=== PATIENT | female | born 1990 | race Caucasian/White ===

== ENCOUNTER 2020-05-22 01:12 | Inpatient (IN) ==
[2020-05-22] MEDS ORDERED: Sodium Citrate/Citric Acid LIQ 15 ML UDC ONE (01:38)
[2020-05-22] MEDS ORDERED: ceFOXitin 2 GM IVPREMIX 0 GM/0 ML BAG ONE (01:38)
[2020-05-22] MEDS ORDERED: OBEPIDURAL 0 ML EPIDURAL ONE (01:52)
[2020-05-22] MEDS ORDERED: Oxytocin in LR 20 UNITS/1,000 ML BAG IVPB ONE (01:53)
[2020-05-22] MEDS ORDERED: Dibucaine 1% OINT 28.35 GM TUBE PR PRN (02:35)
[2020-05-22] MEDS ORDERED: Buffered Lidocaine 1% SYRIN 1 ml INTRADERM ONE (02:35)
[2020-05-22] MEDS ORDERED: Witch Hazel PAD JAR TOPICAL PRN (02:35)
[2020-05-22] MEDS ORDERED: Lactated Ringers 1000 ml BAG 1,000 ML IV SCH ×2 (03:00)
[2020-05-23 06:45] LABS: ABS Basophils 0.1 10^3/ul (0-0.2); ABS Eosinophils 0.3 10^3/ul (0-0.6); ABS Monocytes 0.9 10^3/ul (0-0.8); ABS Neutrophils 7.4 10^3/ul (1.5-7.7); Eosinophil % 2.4 %; Hematocrit 28 % (35-47); Hemoglobin 9.4 g/dL (12.0-16.0); Lymphocyte % 25.6 %; Mean Corpuscular HGB Conc 33 g/dL (31-36); Mean Corpuscular Hemoglobin 28 pg (27-31); Mean Corpuscular Volume 85 fL (80-97); Mean Platelet Volume 9.8 fL (7.4-10.4); Nucleated Red Blood Cells % 0.1; Platelet Count 233 10^3/uL (150-450); Red Blood Count 3.33 10^6 /uL (3.70-4.87); Red Cell Distribution Width 16 % (10-15); White Blood Count 11.6 10^3/uL (3.5-10.8)
[2020-05-23 07:41] VITALS: BP 141/89
== END 2020-05-23 09:45 | disposition home or self-care (01) | DRG 560 ==
LOC: MCHOB 01:12
PROVIDERS: ADMIT Obstetrics & Gynecology; ATTEND Obstetrics & Gynecology